=== PATIENT | male | born 1965 | race Two or more races ===

== ENCOUNTER 2023-05-03 10:13 | Emergency (ER) | payer OTHER, MEDICAID ==
[~2023-05-03] VITALS: Ht 170.2 cm; Wt 54.5 kg
[2023-05-03 10:50] LABS: Basophils # (auto) 0 10 ^3/uL (0-0.2); Basophils % (auto) 0.3 % (0.0-2.0); Eosinophils # (auto) 0 10 ^3/uL (0-0.8); Eosinophils % (auto) 0.3 % (0.0-7.0); Hematocrit 47.4 % (41.0-53.0); Hemoglobin 15.7 g/dL (13.5-17.5); Mean Corpuscular Hemoglobin 32.3 pg (28.0-32.0); Mean Corpuscular Volume 97.9 fL (80.0-100.0); Monocytes # (auto) 0.8 10 ^3/uL (0-1.3); Monocytes % (auto) 11.2 % (0.0-12.0); Neutrophils # (auto) 5.1 10 ^3/uL (1.6-8.6); Neutrophils % (auto) 73.2 % (37.0-80.0); Nucleated Red Blood Cells % 0.1 %; Red Blood Cells 4.84 10^6/uL (4.5-5.90); Red Cell Distribution Width 13.8 % (11.8-14.3)
[2023-05-03 10:58] LABS: Alanine Aminotransferase 23 U/L (7-40); Albumin 4.5 g/dL (3.2-4.8); Alkaline Phosphatase 113 U/L (46-116); Anion Gap 9 (5-15); Aspartate Aminotransferase 15 U/L (13-40); BUN/Creatinine Ratio 24.1 (10.0-20.0); Blood Urea Nitrogen 13 mg/dL (9-23); Calcium 9.2 mg/dL (8.5-10.1); Carbon Dioxide 22 mmol/L (20-30); Chloride 107 mmol/L (98-107); Glucose 114 mg/dL (74-106); Potassium 3.9 mmol/L (3.5-5.1); Sodium 138 mmol/L (136-145)
[2023-05-03 10:59] LABS: Bilirubin, Total 1.7 mg/dL (0.2-1.0); Total Protein 6.7 g/dL (5.7-8.2)
[2023-05-03 12:05] VITALS: PULSE 90; RESP 20; O2SAT 96
[2023-05-03 15:11] LABS: Urine Bacteria FEW /hpf (None Seen); Urine Blood 1+ /uL (Negative); Urine Clarity CLOUDY (Clear); Urine Color Yellow (Yellow); Urine Mucus FEW (None Seen); Urine Protein, UAD 1+ (Negative); Urine Specific Gravity 1.019 (1.001-1.035); Urine WBC 35 /hpf (0 - 3); Urine pH 6.5 (5.0-8.0)
[2023-05-03] MEDS ORDERED: CEPH500C PO (15:55)
[2023-05-03 19:30] VITALS: PULSE 106; RESP 21; O2SAT 94
[2023-05-03] MEDS ORDERED: LEVE750T3 PO (20:28)
[2023-05-03] MEDS ORDERED: BACL10TA PO (20:28)
[2023-05-03] MEDS ORDERED: levETIRAcetam 500 MG TAB PO ONE (20:45)
[2023-05-03] MEDS ORDERED: BACLOFEN 10 MG TAB PO ONE (20:45)
[2023-05-03 22:30] VITALS: PULSE 98; RESP 18
[2023-05-04 07:30] VITALS: PULSE 101; RESP 16; TEMP 98.8; O2SAT 95
[2023-05-04 11:00] VITALS: BP 109/77; PULSE 95; RESP 14; O2SAT 95
== END 2023-05-04 11:20 | disposition home or self-care (01) ==
LOC: EDBD 10:13 → ER 10:13
DX: S09.8XXA Other specified injuries of head, initial encounter (principal); M25.562 Pain in left knee; N39.0 Urinary tract infection, site not specified; R94.31 Abnormal electrocardiogram [ECG] [EKG]; W18.39XA Other fall on same level, initial encounter; Y93.89 Activity, other specified; Y92.89 Other specified places as the place of occurrence of the external cause; Y99.8 Other external cause status
CPT/HCPCS: 36415; 70450; 72125; 73562; 80053; 81001; 83605; 84484; 85025; 93005

== ENCOUNTER 2023-05-22 13:19 | Inpatient (IN) | payer OTHER, MEDICAID ==
[~2023-05-22] VITALS: Ht 167.6 cm; Wt 50.5 kg
[~2023-05-22 13:19] MED LIST: BACL10TA PO; CEPH500C PO; LEVE750T3 PO
[2023-05-22] MEDS ORDERED: PHENAZOPYRIDINE HCL 100 MG TAB PO ONE (15:00)
[2023-05-22] MEDS ORDERED: levoFLOXacin 500MG 100 ML IV ONE (15:00)
[2023-05-22 15:16] LABS: Basophils # (auto) 0.1 10 ^3/uL (0-0.2); Basophils % (auto) 2.1 % (0.0-2.0); Eosinophils # (auto) 0.2 10 ^3/uL (0-0.8); Hematocrit 43.2 % (41.0-53.0); Hemoglobin 14.5 g/dL (13.5-17.5); Lymphocytes # (auto) 1.6 10 ^3/uL (0.4-5.4); Lymphocytes % (auto) 36.4 % (10.0-50.0); Mean Corpuscular Hemoglobin 32.4 pg (28.0-32.0); Mean Corpuscular Hgb Conc. 33.5 g/dL (32.0-36.0); Mean Corpuscular Volume 96.6 fL (80.0-100.0); Monocytes # (auto) 0.6 10 ^3/uL (0-1.3); Monocytes % (auto) 13.4 % (0.0-12.0); Neutrophils # (auto) 1.9 10 ^3/uL (1.6-8.6); Neutrophils % (auto) 44.1 % (37.0-80.0); Nucleated Red Blood Cells % 0.1 %; Red Blood Cells 4.47 10^6/uL (4.5-5.90); Red Cell Distribution Width 13.9 % (11.8-14.3); White Blood Cell 4.3 10^3/uL (4.4-10.8)
[2023-05-22 16:59] LABS: Albumin 3.9 g/dL (3.2-4.8); Alkaline Phosphatase 129 U/L (46-116); Anion Gap 6 (5-15); Aspartate Aminotransferase < 8 U/L (13-40); Calcium 8.9 mg/dL (8.5-10.1); Carbon Dioxide 25 mmol/L (20-30); Chloride 109 mmol/L (98-107); Glucose 92 mg/dL (74-106); Potassium 4.2 mmol/L (3.5-5.1); Sodium 140 mmol/L (136-145)
[2023-05-22 17:04] LABS: Alanine Aminotransferase < 9 U/L (7-40); BUN/Creatinine Ratio 26.1 (10.0-20.0); Blood Urea Nitrogen 12 mg/dL (9-23)
[2023-05-22 17:07] LABS: Bilirubin, Total 0.7 mg/dL (0.2-1.0); Total Protein 6.2 g/dL (5.7-8.2)
[2023-05-22 18:58] LABS: Urine Bacteria FEW /hpf (None Seen); Urine Blood 2+ /uL (Negative); Urine Clarity CLOUDY (Clear); Urine Color Brown (Yellow); Urine Protein, UAD 3+ (Negative); Urine Specific Gravity 1.017 (1.001-1.035); Urine Urobilinogen Normal (Negative); Urine WBC 57 /hpf (0 - 3); Urine WBC Clumps PRESENT /hpf (None Seen); Urine pH 7.5 (5.0-8.0)
[2023-05-22 19:49] VITALS: PULSE 90; RESP 16; O2SAT 95
[2023-05-22] MEDS ORDERED: DOCUSATE SOD 100 MG CAP PO PRN (20:45)
[2023-05-22] MEDS ORDERED: ONDANSETRON HCL 4 MG/2 ML VIAL IV PRN (20:45)
[2023-05-22] MEDS ORDERED: ACETAMINOPHEN 325 MG TAB PO PRN (20:45)
[2023-05-22] MEDS ORDERED: HYDROcodone-ACET 5/325MG TAB PO PRN (20:45)
[2023-05-22] MEDS: levETIRAcetam 500 MG TAB PO SCH (22:15)
[2023-05-23 08:00] VITALS: PULSE 87; RESP 16; O2SAT 94
[2023-05-23 08:17] LABS: Basophils # (auto) 0 10 ^3/uL (0-0.2); Basophils % (auto) 1.2 % (0.0-2.0); Eosinophils # (auto) 0.1 10 ^3/uL (0-0.8); Eosinophils % (auto) 2.4 % (0.0-7.0); Hematocrit 44.7 % (41.0-53.0); Hemoglobin 14.8 g/dL (13.5-17.5); Lymphocytes # (auto) 0.9 10 ^3/uL (0.4-5.4); Lymphocytes % (auto) 24.6 % (10.0-50.0); Mean Corpuscular Hemoglobin 32.5 pg (28.0-32.0); Mean Corpuscular Hgb Conc. 33.2 g/dL (32.0-36.0); Mean Corpuscular Volume 98.1 fL (80.0-100.0); Monocytes # (auto) 0.6 10 ^3/uL (0-1.3); Monocytes % (auto) 16.6 % (0.0-12.0); Neutrophils % (auto) 55.2 % (37.0-80.0); Red Blood Cells 4.56 10^6/uL (4.5-5.90); Red Cell Distribution Width 14.1 % (11.8-14.3); White Blood Cell 3.6 10^3/uL (4.4-10.8)
[2023-05-23 08:24] LABS: Chloride 109 mmol/L (98-107); Potassium 4.1 mmol/L (3.5-5.1); Sodium 141 mmol/L (136-145)
[2023-05-23 08:25] LABS: Anion Gap 7 (5-15); Carbon Dioxide 25 mmol/L (20-30)
[2023-05-23 08:30] LABS: Blood Urea Nitrogen 13 mg/dL (9-23); Glucose 85 mg/dL (74-106)
[2023-05-23] MEDS: ENOXAPARIN SOD 40 MG/0.4 ML SYRINGE SC SCH ×2 (10:00→10:16)
[2023-05-23] MEDS: PHENAZOPYRIDINE HCL 100 MG TAB PO SCH ×2 (10:15→21:37)
[2023-05-23] MEDS: levoFLOXacin 500MG 100 ML IV SCH (10:16)
[2023-05-23] MEDS: levETIRAcetam 500 MG TAB PO SCH ×2 (10:16→21:37)
[2023-05-23 18:07] VITALS: BP 126/62; PULSE 72; RESP 18; TEMP 98.2; O2SAT 96
[2023-05-23 20:00] VITALS: PULSE 103; RESP 18; O2SAT 91
[2023-05-23 22:00] VITALS: BP 95/56; PULSE 103; RESP 18; TEMP 97.9; O2SAT 91
[2023-05-24 05:46] VITALS: BP 103/62; PULSE 92; RESP 18; TEMP 98.6; O2SAT 92
[2023-05-24 08:00] VITALS: PULSE 70; RESP 18; O2SAT 93
[2023-05-24 09:00] VITALS: BP 101/62; PULSE 78; RESP 18; TEMP 98.5; O2SAT 93
[2023-05-24] MEDS: levETIRAcetam 500 MG TAB PO SCH ×2 (09:34→21:52)
[2023-05-24] MEDS: levoFLOXacin 500MG 100 ML IV SCH (09:34)
[2023-05-24] MEDS: ENOXAPARIN SOD 40 MG/0.4 ML SYRINGE SC SCH (09:35)
[2023-05-24] MEDS: PHENAZOPYRIDINE HCL 100 MG TAB PO SCH ×2 (09:35→21:52)
[2023-05-24 13:00] VITALS: BP 99/64; PULSE 84; RESP 18; TEMP 98.8; O2SAT 95
[2023-05-24 20:00] VITALS: RESP 18; O2SAT 94
[2023-05-24 22:00] VITALS: BP 92/63; PULSE 90; RESP 20; TEMP 97.5; O2SAT 91
[2023-05-25 04:49] VITALS: BP 93/60; PULSE 74; RESP 18; TEMP 97.1; O2SAT 93
[2023-05-25 08:49] VITALS: BP 105/72; PULSE 80; RESP 16; TEMP 97.7; O2SAT 93
[2023-05-25] MEDS: ENOXAPARIN SOD 40 MG/0.4 ML SYRINGE SC SCH ×2 (09:21→09:24)
[2023-05-25] MEDS: PHENAZOPYRIDINE HCL 100 MG TAB PO SCH (09:21)
[2023-05-25] MEDS: levETIRAcetam 500 MG TAB PO SCH (09:22)
[2023-05-25] MEDS: levoFLOXacin 500MG 100 ML IV SCH (09:22)
[2023-05-25] MEDS ORDERED: CIPR-173 PO (11:43)
[2023-05-25 13:00] VITALS: BP 106/75; PULSE 79; RESP 18; TEMP 98.5; O2SAT 94
== END 2023-05-25 16:10 | disposition home or self-care (01) | DRG 689 ==
LOC: ER 13:19 → EDBD 13:19 → WEST WING 20:43 → OVERFLOW 20:43 → WEST WING 05-23 17:47
PROVIDERS: ADMIT Nurse Practitioner; ATTEND Family Medicine
DX: N30.01 Acute cystitis with hematuria (principal); G93.41 Metabolic encephalopathy; R56.9 Unspecified convulsions; B95.2 Enterococcus as the cause of diseases classified elsewhere; G80.9 Cerebral palsy, unspecified; Z74.01 Bed confinement status; Z87.820 Personal history of traumatic brain injury; Z79.2 Long term (current) use of antibiotics; Z79.899 Other long term (current) drug therapy
CPT/HCPCS: 36415; 80048; 80053; 81001; 83605; 85025; 87040; 87086; 87088; 87186; G0378; J1956